=== PATIENT | female | born 1990 | race Hispanic/Latino ===

== ENCOUNTER 2018-05-13 13:23 | Emergency (ER) | payer SELFPAY ==
[2018-05-13 14:44] LABS: Bilirubin Negative (Negative); Blood, Urine Moderate (Negative); Clarity CLEAR (Clear); Glucose, Urine (Dipstick) Negative (Negative); Leukocyte Negative (Negative); Nitrite Negative (Negative); Protein, Urine (Dipstick) Negative (Neg-Trace); Specific Gravity, Urine 1.013 (1.002-1.036); Urobilinogen 0.2 mg/dL (0.2-1.0); pH, Urine 5.5 (5.0-9.0)
[2018-05-13 14:45] LABS: Bacteria/HPF None Seen HPF (None Seen); Hyaline Casts/LPF 0-3 HYALINE CAST LPF (0-3 Hyaline); Squamous Epithelial 0-3 HPF (0-3); WBC/HPF 0-3 HPF (0-3)
[2018-05-13 14:46] LABS: #Basophils 0.1 thou/uL (0.0-0.2); #Eosinphils 0.1 thou/uL (0.0-0.7); #Lymphocytes 2.4 thou/uL (1.20-3.40); #Monocytes 0.4 thou/uL (0.11-0.59); #Neutrophils 5.1 thou/uL (1.40-6.50); %Basophils 0.8 % (0.0-1.0); %Eosinophils 1.8 % (0.0-10.0); %Lymphocytes 29.4 % (21.0-51.0); %Monocytes 5.4 % (0.0-10.0); %Neutrophils 62.6 % (42.0-75.0); Hemoglobin 12.3 g/dL (12.0-16.0); Mean Corpuscular HGB CONC 33.4 g/dL (32.0-36.0); Mean Corpuscular Hemoglobin 28.8 pg (27.0-31.0); Mean Corpuscular Volume 86.2 fL (78.0-98.0); Mean Platelet Volume 7.5 fL (7.4-10.4); Platelet Count 377 thou/uL (130-400); RBC Distribution Width 11.8 % (11.5-14.5); Red Blood Cell (RBC) Count 4.27 mill/uL (4.20-5.40); White Blood Cell (WBC) Count 8.1 thou/uL (4.8-10.8)
[2018-05-13] MEDS ORDERED: Lidocaine Viscous Sol 2% 15 ml UD Cup ONE (14:48)
[2018-05-13] MEDS ORDERED: Mag-Al 1200 mg/1200 mg/30 ML UDCUP ONE (14:48)
[2018-05-13 14:49] LABS: Pregnancy Test - Urine (BHCG) Negative (Negative); Pregu Control Background? CLEAR/WHITE (CLR/WHITE); Pregu Control Bar Appear? YES (CONTROL BAR); Specific Gravity 1.013 (1.002-1.036)
[2018-05-13 14:50] LABS: Yeast-AUWi Flag 48.4 (0-25.0)
[2018-05-13 14:56] LABS: ALT (SGPT) 25 U/L (8-55); AST (SGOT) 19 U/L (5-34); Albumin 4.6 g/dL (3.5-5.0); Alkaline Phosphatase 84 U/L (40-150); Anion Gap 11 mmol/L (10-20); BUN (Urea Nitrogen) 13 mg/dL (7.0-18.7); Bilirubin, Total 0.3 mg/dL (0.2-1.2); Calc. Creatinine Clearance 0 mL/min (70-130); Calcium 9.6 mg/dL (7.8-10.44); Carbon Dioxide 26 mmol/L (22-29); Chloride 103 mmol/L (98-107); Estimated GFR-MDRD Greater than 90; Globulin 3.7 g/dL (2.4-3.5); Glucose 93 mg/dL (70-105); Lipase 17 U/L (8-78); Potassium 3.6 mmol/L (3.5-5.1); Protein, Total 8.3 g/dL (6.0-8.3); Sodium 136 mmol/L (136-145)
[2018-05-13 14:57] LABS: RBC/HPF 0-3 HPF (0-3)
--- NOTE | 2018-05-13 16:10 | ULT ---
RIGHT UPPER QUADRANT ULTRASOUND: Date: 05/13/18 HISTORY: Pain. COMPARISON: None. TECHNIQUE: Utilizing a multihertz transducer, sonographic imaging of the right upper quadrant is performed in th e longitudinal and transverse plane. FINDINGS: Suboptimal evaluation of the pancreas. Hepatic parenchyma has a normal echotexture. No hepatic masses or intrahepatic biliary dilatation. Co ntour of the hepatic margin maintained. Right hepatic lobe measures 16.2 cm. Main portal vein is patent. Appropriate direction of flow. Sonographic evidence of cholelithiasis. There is at least a 1.0 cm gallstone in the lumen of the gall bladder. Gallbladder wall is not thickened. No pericholecystic fluid. Negative Singh's sign. Common bile duct diameter is 0.3 cm. No hydronephrosis. Right kidney measures 6.0 x 12.8 x 5.7 cm. Nonshadowing hyperechoic focus in the r ight renal cortex is nonspecific. IMPRESSION: No sonographic evidence of cholecystitis. There is sonographic evidence of cholelithiasis. HIDA scan if clinically warranted. POS: IVONE
== END 2018-05-13 17:13 | disposition home or self-care (01) ==
LOC: ERS 13:23
DX: K80.20 Calculus of gallbladder without cholecystitis without obstruction (principal); E78.5 Hyperlipidemia, unspecified; D64.9 Anemia, unspecified
CPT/HCPCS: 76705; 80053; 81003; 81015; 81025; 83690; 85025

== ENCOUNTER 2018-06-09 09:17 | Outpatient (CLI) | payer MEDICAID ==
[2018-06-09 10:25] LABS: #Basophils 0.1 thou/uL (0.0-0.2); #Eosinphils 0.2 thou/uL (0.0-0.7); #Lymphocytes 2.3 thou/uL (1.20-3.40); #Monocytes 0.4 thou/uL (0.11-0.59); #Neutrophils 4.4 thou/uL (1.40-6.50); %Basophils 0.9 % (0.0-1.0); %Eosinophils 2.5 % (0.0-10.0); %Lymphocytes 32.1 % (21.0-51.0); %Monocytes 4.8 % (0.0-10.0); %Neutrophils 59.7 % (42.0-75.0); Mean Corpuscular HGB CONC 33.8 g/dL (32.0-36.0); Mean Corpuscular Hemoglobin 28.9 pg (27.0-31.0); Mean Corpuscular Volume 85.4 fL (78.0-98.0); Mean Platelet Volume 7.8 fL (7.4-10.4); Platelet Count 326 thou/uL (130-400); RBC Distribution Width 11.6 % (11.5-14.5); Red Blood Cell (RBC) Count 4.15 mill/uL (4.20-5.40); White Blood Cell (WBC) Count 7.3 thou/uL (4.8-10.8)
[2018-06-09 10:33] LABS: BHCG - Serum Negative (NEGATIVE); Pregs Control Background? CLEAR/WHITE (CLR/WHITE); Pregs Control Bar Appear? YES (CONTROL BAR)
[2018-06-09 10:50] LABS: ALT (SGPT) 24 U/L (8-55); AST (SGOT) 17 U/L (5-34); Albumin 4.4 g/dL (3.5-5.0); Alkaline Phosphatase 96 U/L (40-150); Anion Gap 12 mmol/L (10-20); BUN (Urea Nitrogen) 12 mg/dL (7.0-18.7); Bilirubin, Direct 0.1 mg/dL (0.1-0.3); Bilirubin, Total 0.3 mg/dL (0.2-1.2); Calc. Creatinine Clearance 0 mL/min (70-130); Calcium 9.1 mg/dL (7.8-10.44); Carbon Dioxide 24 mmol/L (22-29); Chloride 105 mmol/L (98-107); Estimated GFR-MDRD Greater than 90; Globulin 3.1 g/dL (2.4-3.5); Glucose 97 mg/dL (70-105); Protein, Total 7.5 g/dL (6.0-8.3); Sodium 137 mmol/L (136-145)
== END 2018-06-09 09:18 | disposition home or self-care (01) ==
LOC: LABBT 09:17
PROVIDERS: ATTEND Surgery
DX: Z01.812 Encounter for preprocedural laboratory examination (principal); K80.20 Calculus of gallbladder without cholecystitis without obstruction
CPT/HCPCS: 80053; 80076; 84703; 85025

== ENCOUNTER 2018-06-10 06:07 | Day surgery (SDC) | payer MEDICAID, OTHER ==
[2018-06-09 09:36] VITALS: BMI 29.2
[2018-06-10] MEDS ORDERED: Bupivacaine/Epinephrine 0.25% 30 ML VIAL ONE (06:26)
[2018-06-10] MEDS ORDERED: Fentanyl 100 MCG/2 ML VIAL ONE ×3 (06:44→09:12)
[2018-06-10] MEDS ORDERED: Midazolam HCl 2 mg/2 ml Vial ONE (06:44)
[2018-06-10] MEDS ORDERED: cefOXitin Sodium/Dextrose,Iso 2 GM in Premix Bag 1 BAG IVPB SCH (07:15)
[2018-06-10] MEDS ORDERED: cefOXitin Sodium 1 GM in Sodium Chloride 0.9% 100 ML IVPB SCH (07:15)
[2018-06-10] MEDS ORDERED: HYDROcodone/Acetaminophen 5/325 mg Tablet ONE ×2 (10:15→11:27)
--- NOTE | 2018-06-10 10:49 | OP ---
DATE OF PROCEDURE: 06/10/2018 PREOPERATIVE DIAGNOSIS: Symptomatic cholelithiasis. PROCEDURE PERFORMED: Laparoscopic cholecystectomy. INDICATIONS: A 28-year-old female, who has been having episodic right upper quadrant pain, radiating to the back, associated with nausea. Ultrasound showed cholelithiasis. FINDINGS: Very small cystic duct, some adhesions to the gallbladder. DESCRIPTION OF PROCEDURE: After informed consent was obtained, the patient was taken to the operating room, given general endotracheal anesthesia, placed in supine position. Abdomen was prepped and draped in usual fashion. Local anesthesia infiltrated subcutaneously and deep. A subumbilical incision was performed with subcu device sharply. The fascia was grasped. Two stay sutures of 0 Vicryl were placed each side of midline. Midline was incised. Digital palpation revealed no local adhesions. A blunt 10/12 mm trocar inserted. Pneumoperitoneum was created to a pressure of 15 mmHg. A 0-degree laparoscope was inserted under direct vision. Three 5-mm ports were placed subcostally. The gallbladder was grasped and advanced superiorly. Peritoneum was lysed distally, revealed small cystic duct and artery as well as the critical view. The artery and duct were triply ligated and divided. The gallbladder removed from its fossa utilizing electrocautery and removed from the abdomen through the umbilical port. Hemostasis was assured. Trocars and retractors were removed. The fascia was closed with interrupted 0 Vicryl suture and the skin closed with interrupted 4-0 Rapide. Dermabond was applied. The patient tolerated the procedure well, transferred to Recovery in good condition. Sponge and needle count verified to be correct x2. Job ID: [id number]
[2018-06-10] MEDS ORDERED: Ondansetron PF 4 MG/2 ML Vial ONE (21:29)
[2018-06-10] MEDS ORDERED: PROPOFOL 200 MG/20 ML VIAL ONE (21:29)
[2018-06-10] MEDS ORDERED: Esmolol 100 MG/10 ML VIAL ONE (21:29)
[2018-06-10] MEDS ORDERED: Ketorolac Tromethamine 30 MG/ML VIAL ONE (21:29)
[2018-06-10] MEDS ORDERED: Glycopyrrolate 0.2 MG/ML 5 ML SYRINGE ONE (21:29)
[2018-06-10] MEDS ORDERED: Dexamethasone 20 MG/5 ML VIAL ONE (21:29)
== END 2018-06-10 11:35 | disposition home or self-care (01) ==
LOC: SDC 06:07
PROVIDERS: ATTEND Surgery
PROC: 0FT44ZZ Resection of Gallbladder, Percutaneous Endoscopic Approach (ICD-10-PCS; principal; 2018-06-10)
DX: K80.10 Calculus of gallbladder with chronic cholecystitis without obstruction (principal); Z79.891 Long term (current) use of opiate analgesic
CPT/HCPCS: 88304; 96374; J0694; J1100; J1885; J2250; J2405; J2704; J3010; J7050

== ENCOUNTER 2018-07-10 14:07 | Emergency (ER) | payer MEDICAID, OTHER ==
[2018-07-10] MEDS ORDERED: Ibuprofen 800 MG TAB ONE (14:55)
[2018-07-10 16:01] LABS: Bilirubin Negative (Negative); Blood, Urine Large (Negative); Clarity CLOUDY (Clear); Glucose, Urine (Dipstick) Negative (Negative); Leukocyte Small (Negative); Nitrite Negative (Negative); Protein, Urine (Dipstick) Trace mg/dL (Neg-Trace); Specific Gravity, Urine 1.019 (1.002-1.036)
[2018-07-10 16:04] LABS: Bacteria/HPF None Seen HPF (None Seen); Hyaline Casts/LPF 0-3 HYALINE CAST LPF (0-3 Hyaline); Pathc Cast-AUWi Flag 0.43 (0-2.49); RBC/HPF GREATER THAN 50-TNTC HPF (0-3); Squamous Epithelial 0-3 HPF (0-3)
[2018-07-10 16:07] LABS: Pregnancy Test - Urine (BHCG) Negative (Negative); Pregu Control Background? CLEAR/WHITE (CLR/WHITE); Pregu Control Bar Appear? YES (CONTROL BAR); Specific Gravity 1.019 (1.002-1.036)
[2018-07-10 16:57] LABS: #Lymphocytes 0.9 thou/uL (1.20-3.40); #Monocytes 0.3 thou/uL (0.11-0.59); #Neutrophils 3.4 thou/uL (1.40-6.50); %Basophils 0.1 % (0.0-1.0); %Eosinophils 1.1 % (0.0-10.0); %Lymphocytes 18.9 % (21.0-51.0); Hemoglobin 11.5 g/dL (12.0-16.0); Mean Corpuscular HGB CONC 33.8 g/dL (32.0-36.0); Mean Corpuscular Hemoglobin 28.7 pg (27.0-31.0); Mean Corpuscular Volume 84.9 fL (78.0-98.0); Mean Platelet Volume 7.6 fL (7.4-10.4); Platelet Count 236 thou/uL (130-400); RBC Distribution Width 11.6 % (11.5-14.5); White Blood Cell (WBC) Count 4.6 thou/uL (4.8-10.8)
[2018-07-10 17:20] LABS: ALT (SGPT) 47 U/L (8-55); AST (SGOT) 32 U/L (5-34); Albumin 4.1 g/dL (3.5-5.0); Alkaline Phosphatase 134 U/L (40-150); Anion Gap 12 mmol/L (10-20); BUN (Urea Nitrogen) 9 mg/dL (7.0-18.7); Bilirubin, Total 0.4 mg/dL (0.2-1.2); Calc. Creatinine Clearance 0 mL/min (70-130); Carbon Dioxide 23 mmol/L (22-29); Chloride 104 mmol/L (98-107); Estimated GFR-MDRD Greater than 90; Globulin 3.3 g/dL (2.4-3.5); Glucose 93 mg/dL (70-105); Potassium 3.3 mmol/L (3.5-5.1); Protein, Total 7.4 g/dL (6.0-8.3); Sodium 136 mmol/L (136-145)
== END 2018-07-10 17:16 | disposition home or self-care (01) ==
LOC: ERS 14:07
DX: N39.0 Urinary tract infection, site not specified (principal); E78.5 Hyperlipidemia, unspecified; D64.9 Anemia, unspecified
CPT/HCPCS: 36415; 80053; 81003; 81015; 81025; 85025; 87086; 87804; 99283

== ENCOUNTER 2019-05-25 21:12 | Emergency (ER) | payer OTHER, SELFPAY ==
[2019-05-25] MEDS ORDERED: Acetaminophen 325 MG TAB ONE (22:53)
--- NOTE | 2019-05-25 23:02 | RAD ---
RADIOGRAPH LEFT GREAT TOE 3VIEWS: DATE: 05/25/2019 HISTORY: 29-year-old female status post blunt trauma to first toe. FINDINGS: There is no dislocation. No fracture is identified. IMPRESSION: No fracture.
== END 2019-05-25 23:27 | disposition home or self-care (01) ==
LOC: ERS 21:12
DX: S90.112A Contusion of left great toe without damage to nail, initial encounter (principal); D64.9 Anemia, unspecified; E78.5 Hyperlipidemia, unspecified; E78.00 Pure hypercholesterolemia, unspecified; W22.03XA Walked into furniture, initial encounter

== ENCOUNTER 2019-06-14 12:09 | Emergency (ER) | payer SELFPAY ==
[2019-06-14 13:01] LABS: Pregnancy Test - Urine (BHCG) Negative (Negative); Pregu Control Background? CLEAR/WHITE (CLR/WHITE); Pregu Control Bar Appear? YES (CONTROL BAR); Specific Gravity 1.017 (1.002-1.036)
[2019-06-14 13:08] LABS: Bacteria/HPF None Seen HPF (None Seen); Bilirubin Negative (Negative); Blood, Urine 2+ (Negative); Clarity Clear (Clear); Glucose, Urine (Dipstick) Normal (Negative); Leukocyte Negative Leu/uL (Negative); Mucous/LPF Rare LPF (<2+); Nitrite Negative (Negative); Protein, Urine (Dipstick) Negative (Neg-Trace); Squamous Epithelial 0-3 HPF (0-3); Urobilinogen Normal mg/dL (Less than 2); WBC/HPF 0-3 HPF (0-3)
[2019-06-14] MEDS ORDERED: Ketorolac Tromethamine 30 MG/ML VIAL ONE (14:11)
--- NOTE | 2019-06-14 14:43 | CT ---
CT ABDOMEN AND PELVIS PERFORMED WITHOUT CONTRAST ENHANCEMENT: Date: 06/14/19 HISTORY: Dysuria and pain radiating to the back. FINDINGS: Lung bases are clear. The liver, spleen, and pancreas regions appear unremarkable given the limitations of a noncontrast st udy. The gallbladder has been removed. Right and left adrenal glands, and right and left kidneys are normal in appearance. No renal calculi are demonstrated. No ureteral calculus. No obstruction. No significant periaortic or mesenteric adeno mila. CT of pelvis was performed without contrast enhancement. Appendix region appears unremarkable. I see what I believe to be possibly the appendix. There is certainly no periappendiceal inflammatory change noted. There appear to be follicles involving both adnexa and what appears to be free fluid in the r ight side of the cul-de-sac. IMPRESSION: Findings that would suggest the possibility of a ruptured right ovarian follicle. POS: IVONE
== END 2019-06-14 15:07 | disposition home or self-care (01) ==
LOC: ERS 12:09
DX: N76.0 Acute vaginitis (principal); N39.0 Urinary tract infection, site not specified; E78.5 Hyperlipidemia, unspecified; E78.00 Pure hypercholesterolemia, unspecified
CPT/HCPCS: 74176; 81003; 81015; 81025; 87086; 96372; J1885

== ENCOUNTER 2019-08-15 08:00 | Emergency (ER) | payer SELFPAY ==
[2019-08-15 08:30] LABS: #Basophils 0.1 thou/uL (0.0-0.2); #Eosinphils 0.1 thou/uL (0.0-0.7); #Lymphocytes 1.7 thou/uL (1.20-3.40); #Monocytes 0.3 thou/uL (0.11-0.59); %Basophils 0.6 % (0.0-1.0); %Eosinophils 1.2 % (0.0-10.0); %Lymphocytes 20.6 % (21.0-51.0); %Monocytes 3.7 % (0.0-10.0); %Neutrophils 73.9 % (42.0-75.0); Hemoglobin 12.2 g/dL (12.0-16.0); Mean Corpuscular HGB CONC 33.5 g/dL (32.0-36.0); Mean Corpuscular Hemoglobin 27.5 pg (27.0-31.0); Mean Corpuscular Volume 82.1 fL (78.0-98.0); Platelet Count 323 thou/uL (130-400); RBC Distribution Width 13.6 % (11.5-14.5); Red Blood Cell (RBC) Count 4.43 mill/uL (4.20-5.40); White Blood Cell (WBC) Count 8.1 thou/uL (4.8-10.8)
[2019-08-15 08:39] LABS: Bacteria/HPF None Seen HPF (None Seen); Bilirubin Negative (Negative); Blood, Urine 2+ (Negative); Clarity Clear (Clear); Glucose, Urine (Dipstick) Normal (Negative); Leukocyte 25 Leu/uL (Negative); Nitrite Negative (Negative); Protein, Urine (Dipstick) Negative (Neg-Trace); Squamous Epithelial 0-3 HPF (0-3); Urobilinogen Normal mg/dL (Less than 2); WBC/HPF 0-3 HPF (0-3)
[2019-08-15 08:45] LABS: ALT (SGPT) 46 U/L (8-55); AST (SGOT) 21 U/L (5-34); Albumin 4.7 g/dL (3.5-5.0); Alkaline Phosphatase 113 U/L (40-110); Anion Gap 14 mmol/L (10-20); BUN (Urea Nitrogen) 9 mg/dL (7.0-18.7); Bilirubin, Total 0.3 mg/dL (0.2-1.2); Calc. Creatinine Clearance 0 mL/min (70-130); Calcium 10.4 mg/dL (7.8-10.44); Carbon Dioxide 21 mmol/L (22-29); Chloride 106 mmol/L (98-107); Estimated GFR-MDRD Greater than 90; Globulin 3.9 g/dL (2.4-3.5); Glucose 111 mg/dL (70-105); Potassium 3.6 mmol/L (3.5-5.1); Protein, Total 8.6 g/dL (6.0-8.3); Sodium 137 mmol/L (136-145)
--- NOTE | 2019-08-15 10:25 | ULT ---
Pelvic sonogram transabdominal and transvaginal imaging with duplex evaluation HISTORY: Early . Pelvic pain. FINDINGS: Urinary bladder is unremarkable. Uterus is retroverted and is 7.5 cm. Gestational sac conta ins a yolk sac and tiny pole. Measurements correlate with 5 weeks 5 days gestational age giving an estimated date of delivery of 04/11/2020. Small size of pole precludes documentation of heart motion. No free fluid in the pelvis. Each ovary has a normal appearance with small follicles and good color flow. IMPRESSION: Single early intrauterine gestation. Estimated gestational age 5 weeks 5 days. No evidenc e of complication. Retroverted uterus.
== END 2019-08-15 10:50 | disposition home or self-care (01) ==
LOC: ERS 08:00
DX: O99.89 Other specified diseases and conditions complicating pregnancy, childbirth and the puerperium (principal); M54.5 Low back pain; R10.817 Generalized abdominal tenderness; O99.281 Endocrine, nutritional and metabolic diseases complicating pregnancy, first trimester; E78.5 Hyperlipidemia, unspecified; E78.00 Pure hypercholesterolemia, unspecified; O99.011 Anemia complicating pregnancy, first trimester; Z3A.01 Less than 8 weeks gestation of pregnancy
CPT/HCPCS: 36415; 76856; 80053; 81003; 81015; 84702; 85025; 86900; 86901

== ENCOUNTER 2020-03-28 05:07 | Inpatient (IN) | payer OTHER ==
[2020-03-28] MEDS ORDERED: Methylergonovine 0.2 MG/ML VIAL IM PRN (05:34)
[2020-03-28] MEDS ORDERED: NS / Oxytocin 40 units/1000ml 1,000 ML IV PRN (05:34)
[2020-03-28] MEDS ORDERED: Misoprostol 200 MCG TAB PR PRN (05:34)
[2020-03-28] MEDS ORDERED: Promethazine HCl 25 MG/ML VIAL IM PRN (05:34)
[2020-03-28] MEDS ORDERED: HYDROcodone/Acetaminophen 5/325 mg Tablet PO PRN ×3 (05:34→13:14)
[2020-03-28] MEDS ORDERED: Lidocaine 1% (PF) 30 ML VIAL SC PRN (05:34)
[2020-03-28] MEDS ORDERED: Acetaminophen 500 MG TAB PO PRN (05:34)
[2020-03-28] MEDS ORDERED: Carboprost 250 MCG/ML AMP IM PRN (05:34)
[2020-03-28] MEDS ORDERED: Ibuprofen 800 MG TAB PO PRN (05:34)
[2020-03-28] MEDS ORDERED: Butorphanol Tartrate 1 MG/ML VIAL SLOW IVP PRN (05:34)
[2020-03-28] MEDS ORDERED: Ondansetron PF 4 MG/2 ML Vial IVP PRN ×2 (05:34→13:14)
[2020-03-28] MEDS ORDERED: Diphenoxylate HCl/Atropine Tablet PO PRN ×2 (05:34)
[2020-03-28] MEDS ORDERED: hydrALAZINE 20 MG/ML VIAL SLOW IVP PRN ×2 (05:34→13:14)
[2020-03-28] MEDS ORDERED: Lactated Ringer's 1,000 ML IV SCH (05:45)
[2020-03-28 05:48] VITALS: BMI 26.7
[2020-03-28 05:48] LABS: Amnisure Test RUPTURE DETECTED (No Rupture)
[2020-03-28 05:50] LABS: Amnisure Internal Control QC ACCEPTABLE (ACCEPTABLE)
[2020-03-28 06:12] LABS: Hemoglobin 9.8 g/dL (12.0-16.0); Mean Corpuscular HGB CONC 33.7 g/dL (32.0-36.0); Mean Corpuscular Hemoglobin 27.1 pg (27.0-31.0); Mean Corpuscular Volume 80.4 fL (78.0-98.0); Mean Platelet Volume 10.4 fL (7.4-10.4); Platelet Count 279 thou/uL (130-400); RBC Distribution Width 12.9 % (11.5-14.5); Red Blood Cell (RBC) Count 3.62 mill/uL (4.20-5.40)
[2020-03-28 06:52] LABS: HBSAg Index 0.19 S/CO (0-0.99); Hep B Surf Ag Non-Reactive S/CO (NonReactive); Syphilis Antibody Nonreactive (Nonreactive); Syphilis Antibody Index 0.02 S/CO (<1.00 Non-Reactive)
[2020-03-28] MEDS ORDERED: Tranexamic Acid 1,000 MG/10 ML VIAL ONE (07:41)
[2020-03-28] MEDS ORDERED: Fentanyl 4 mcg/Bup 0.1% Cadd 100 ML ONE (07:59)
[2020-03-28] MEDS ORDERED: Bupivacaine 0.25% HCL 30 ML VIAL ONE (08:45)
[2020-03-28] MEDS ORDERED: Lidocaine 2% MPF 10 ML AMP (For Epidural Use) ONE (08:45)
[2020-03-28] MEDS ORDERED: Milk Of Magnesia 30 ML UDCUP PO PRN (13:14)
[2020-03-28] MEDS ORDERED: Adacel (T-DAP) 0.5 ML SYRINGE IM ONE (13:14)
[2020-03-28] MEDS ORDERED: diphenhydrAMINE 25 MG CAP PO PRN (13:14)
[2020-03-28] MEDS ORDERED: Lanolin Ointment 7 GM TUBE TOP PRN (13:14)
[2020-03-28] MEDS ORDERED: Bisacodyl 10 MG SUPP PR PRN (13:14)
[2020-03-28] MEDS ORDERED: NS / Oxytocin 40 units/1000ml 1,000 ML IV SCH (13:14)
[2020-03-28] MEDS: HYDROcodone/Acetaminophen 5/325 mg Tablet PO PRN ×2 (14:36→19:40)
[2020-03-28] MEDS: Ibuprofen 800 MG TAB PO SCH ×2 (14:39→21:41)
[2020-03-28 17:55] LABS: SARS-CoV-2 MS2 Positive; SARS-CoV-2 N Gene Negative; SARS-CoV-2 S Gene Negative; SARS-CoV-2 by NAA Not Detected (NotDetected); SARS-CoV-2 orf1ab Negative
[2020-03-28] MEDS: Ferrous Sulfate 325 MG TAB PO SCH (17:55)
[2020-03-28] MEDS: Docusate Calcium (SURFAK) 240 MG CAP PO SCH (19:41)
[2020-03-28] MEDS ORDERED: FLU VACC QS2020-21(6MOS UP)/PF 60 MCG/0.5 ML SYRINGE IM ONE (21:00)
[2020-03-29] MEDS: HYDROcodone/Acetaminophen 5/325 mg Tablet PO PRN ×2 (00:03→08:50)
[2020-03-29] MEDS: Ibuprofen 800 MG TAB PO SCH ×2 (05:45→14:22)
[2020-03-29 07:56] VITALS: BP 120/75; TEMP 98.3
[2020-03-29] MEDS: Docusate Calcium (SURFAK) 240 MG CAP PO SCH (08:50)
[2020-03-29] MEDS: Ferrous Sulfate 325 MG TAB PO SCH ×2 (08:50→16:21)
[2020-03-29] MEDS ORDERED: Prenatal Vitamin 1 TAB PO SCH (09:00)
== END 2020-03-29 17:09 | disposition home or self-care (01) | DRG 807 ==
LOC: L&D/OP 05:07 → L&D 06:13 → 3SW 14:22
PROVIDERS: ADMIT Family Medicine; ATTEND Family Medicine
PROC: 10E0XZZ Delivery of Products of Conception, External Approach (ICD-10-PCS; principal; 2020-03-28)
PROC: 10907ZC Drainage of Amniotic Fluid, Therapeutic from Products of Conception, Via Natural or Artificial Opening (ICD-10-PCS; 2020-03-28)
DX: O77.0 Labor and delivery complicated by meconium in amniotic fluid (principal); Z37.0 Single live birth; Z20.828 Contact with and (suspected) exposure to other viral communicable diseases; Z3A.38 38 weeks gestation of pregnancy; O69.81X0 Labor and delivery complicated by cord around neck, without compression, not applicable or unspecified
CPT/HCPCS: 36415; 51702; 84112; 85027; 86780; 86850; 86900; 86901; 87340; 87635; 99285; J2001; S0020; U0003

== ENCOUNTER 2021-03-29 14:18 | Inpatient (IN) | payer OTHER ==
[2021-03-29 14:59] LABS: #Eosinphils 0.1 thou/uL (0.0-0.7); #Lymphocytes 2.1 thou/uL (1.20-3.40); #Monocytes 0.5 thou/uL (0.11-0.59); %Basophils 0.3 % (0.0-1.0); %Eosinophils 1.1 % (0.0-10.0); %Lymphocytes 24.2 % (21.0-51.0); %Monocytes 6.1 % (0.0-10.0); %Neutrophils 68.3 % (42.0-75.0); Hemoglobin 11.7 g/dL (12.0-16.0); Mean Corpuscular HGB CONC 33.9 g/dL (32.0-36.0); Mean Corpuscular Hemoglobin 27.8 pg (27.0-31.0); Mean Corpuscular Volume 82.1 fL (78.0-98.0); Mean Platelet Volume 7.5 fL (7.4-10.4); Platelet Count 402 thou/uL (130-400); RBC Distribution Width 13.4 % (11.5-14.5); Red Blood Cell (RBC) Count 4.22 mill/uL (4.20-5.40); White Blood Cell (WBC) Count 8.7 thou/uL (4.8-10.8)
[2021-03-29 15:01] LABS: BHCG - Serum Negative (NEGATIVE); Pregs Control Background? CLEAR/WHITE (CLR/WHITE); Pregs Control Bar Appear? YES (CONTROL BAR)
[2021-03-29 15:16] LABS: ALT (SGPT) 68 U/L (8-55); AST (SGOT) 36 U/L (5-34); Albumin 4.1 g/dL (3.5-5.0); Alkaline Phosphatase 229 U/L (40-110); Anion Gap 13 mmol/L (10-20); BUN (Urea Nitrogen) 9 mg/dL (7.0-18.7); Bilirubin, Total 0.3 mg/dL (0.2-1.2); Calc. Creatinine Clearance 0 mL/min (70-130); Calcium 9.1 mg/dL (7.8-10.44); Carbon Dioxide 23 mmol/L (22-29); Chloride 103 mmol/L (98-107); Globulin 3.3 g/dL (2.4-3.5); Glucose 118 mg/dL (70-105); Potassium 3.5 mmol/L (3.5-5.1); Protein, Total 7.4 g/dL (6.0-8.3); Sodium 135 mmol/L (136-145)
[2021-03-29 17:53] LABS: Troponin I Less than 0.010 ng/mL (< 0.028)
[2021-03-29] MEDS ORDERED: Boostrix 0.5 ML (Tdap) VIAL ONE (17:57)
[2021-03-29] MEDS ORDERED: Acetaminophen 500 MG TAB ONE (17:57)
[2021-03-29] MEDS ORDERED: Lactated Ringer's 1,000 ML IV SCH (18:30)
[2021-03-29] MEDS ORDERED: Lorazepam 2 MG/ML VIAL SLOW IVP PRN (19:19)
[2021-03-29 21:05] LABS: Iron 62 ug/dL (50-170); Iron Binding Capacity, Total 371 mcg/dL (265-497)
[2021-03-29 21:10] LABS: Troponin I Less than 0.010 ng/mL (< 0.028)
[2021-03-29 21:22] LABS: Syphilis Antibody Nonreactive (Nonreactive); Syphilis Antibody Index 0.03 S/CO (<1.00 Non-Reactive)
[2021-03-29 21:24] LABS: Ferritin 9.68 ng/mL (10-291)
[2021-03-29 23:01] VITALS: BMI 29.9
[2021-03-29 23:47] LABS: HBCM Index 0.06 S/CO (0-0.79); HBSAg Index 0.22 S/CO (0-0.99); HIV (1/2) Antibody/Antigen Non-Reactive (NonReactive); HIV 1/2 INDEX 0.07 S/CO (<1.00); Hep A IgM AB Non-Reactive (NonReactive); Hep A IgM S/CO 0.13 S/CO (0-0.79); Hep B Surf Ag Non-Reactive S/CO (NonReactive); Hepatitis B Core IgM Abs Non-Reactive (NonReactive)
[2021-03-29 23:50] LABS: Hep C IgG Ab Reflex HepC Qnt (NonReactive); Hep C Index 3.09 S/CO (0-0.79)
[2021-03-30 04:35] LABS: #Lymphocytes 2.5 thou/uL (1.20-3.40); #Monocytes 0.6 thou/uL (0.11-0.59); #Neutrophils 3.7 thou/uL (1.40-6.50); %Basophils 0.6 % (0.0-1.0); %Eosinophils 0.7 % (0.0-10.0); %Lymphocytes 36.4 % (21.0-51.0); %Monocytes 8.1 % (0.0-10.0); %Neutrophils 54.2 % (42.0-75.0); Hemoglobin 10.3 g/dL (12.0-16.0); Mean Corpuscular HGB CONC 34.8 g/dL (32.0-36.0); Mean Corpuscular Hemoglobin 28.8 pg (27.0-31.0); Mean Corpuscular Volume 82.6 fL (78.0-98.0); Mean Platelet Volume 7.3 fL (7.4-10.4); Platelet Count 366 thou/uL (130-400); RBC Distribution Width 13.4 % (11.5-14.5); White Blood Cell (WBC) Count 6.9 thou/uL (4.8-10.8)
[2021-03-30 04:55] LABS: ALT (SGPT) 56 U/L (8-55); AST (SGOT) 33 U/L (5-34); Albumin 3.3 g/dL (3.5-5.0); Alkaline Phosphatase 196 U/L (40-110); Anion Gap 10 mmol/L (10-20); BUN (Urea Nitrogen) 5 mg/dL (7.0-18.7); Bilirubin, Total 0.4 mg/dL (0.2-1.2); Calc. Creatinine Clearance 140 mL/min (70-130); Calcium 8.4 mg/dL (7.8-10.44); Carbon Dioxide 24 mmol/L (22-29); Chloride 108 mmol/L (98-107); Globulin 2.8 g/dL (2.4-3.5); Glucose 91 mg/dL (70-105); Magnesium 1.7 mg/dL (1.6-2.6); Potassium 3.6 mmol/L (3.5-5.1); Protein, Total 6.1 g/dL (6.0-8.3); Sodium 138 mmol/L (136-145)
[2021-03-30 06:18] LABS: Amphetamine Not Detected (NotDetected); Barbiturates Screen Not Detected (NotDetected); Benzodiazepine Screen Not Detected (NotDetected); Cocaine Metabolite Screen Not Detected (NotDetected); Methadone Not Detected (NotDetected); Methamphetamine Not Detected (NotDetected); Opiate Screen Not Detected (NotDetected); Oxycodone Screen Not Detected (NotDetected); Phencyclidine (PCP) Not Detected (NotDetected); THC/Cannabinoid Screen Not Detected (NotDetected); Tricyclic Screen Not Detected (NotDetected)
[2021-03-30] MEDS: Ibuprofen 200 MG TAB PO PRN ×2 (08:32→18:06)
[2021-03-30] MEDS ORDERED: FLU VACC QS2021-22(6MOS UP)/PF 60 MCG/0.5 ML SYRINGE IM ONE (09:00)
[2021-03-30] MEDS ORDERED: Magnevist 469MG/ML 20 ML VIAL ONE (09:01)
[2021-03-30] MEDS ORDERED: Lorazepam 1 MG TAB PO SCH (09:11)
[2021-03-30] MEDS ORDERED: Magnesium Oxide 250 MG TAB PO SCH (09:45)
[2021-03-30 17:21] LABS: SARS-CoV-2 PCR by NAA Not Detected (NotDetected)
[2021-03-31] MEDS: Ibuprofen 200 MG TAB PO PRN ×2 (00:01→06:23)
[2021-03-31 05:05] LABS: #Eosinphils 0.1 thou/uL (0.0-0.7); #Lymphocytes 2.3 thou/uL (1.20-3.40); #Monocytes 0.7 thou/uL (0.11-0.59); #Neutrophils 5.4 thou/uL (1.40-6.50); %Basophils 0.3 % (0.0-1.0); %Eosinophils 0.9 % (0.0-10.0); %Lymphocytes 27.3 % (21.0-51.0); %Monocytes 8.4 % (0.0-10.0); %Neutrophils 63.1 % (42.0-75.0); Hemoglobin 11.4 g/dL (12.0-16.0); Mean Corpuscular HGB CONC 34.4 g/dL (32.0-36.0); Mean Corpuscular Hemoglobin 28.3 pg (27.0-31.0); Mean Corpuscular Volume 82.2 fL (78.0-98.0); Platelet Count 378 thou/uL (130-400); RBC Distribution Width 13.6 % (11.5-14.5); Red Blood Cell (RBC) Count 4.04 mill/uL (4.20-5.40); White Blood Cell (WBC) Count 8.6 thou/uL (4.8-10.8)
[2021-03-31 05:28] LABS: ALT (SGPT) 50 U/L (8-55); AST (SGOT) 18 U/L (5-34); Albumin 3.8 g/dL (3.5-5.0); Alkaline Phosphatase 193 U/L (40-110); Anion Gap 14 mmol/L (10-20); BUN (Urea Nitrogen) 9 mg/dL (7.0-18.7); Bilirubin, Total Less than 0.2 mg/dL (0.2-1.2); Calc. Creatinine Clearance 140 mL/min (70-130); Calcium 9.1 mg/dL (7.8-10.44); Carbon Dioxide 23 mmol/L (22-29); Chloride 109 mmol/L (98-107); Globulin 3.1 g/dL (2.4-3.5); Glucose 115 mg/dL (70-105); Potassium 3.6 mmol/L (3.5-5.1); Protein, Total 6.9 g/dL (6.0-8.3); Sodium 142 mmol/L (136-145)
[2021-03-31] MEDS ORDERED: Magnesium Oxide 250 MG TAB PO SCH (09:00)
[2021-03-31 16:46] VITALS: BP 138/73; TEMP 97.8
[2021-04-01 10:39] LABS: Hep C PCR-Quant HCV Not Detected IU/mL (.)
== END 2021-03-31 18:20 | disposition home or self-care (01) | DRG 101 ==
LOC: ERS 14:18 → OBSVTOIN 17:04 → 2NO 17:04
PROVIDERS: ADMIT Family Medicine; ATTEND Family Medicine
DX: G40.409 Other generalized epilepsy and epileptic syndromes, not intractable, without status epilepticus (principal); S06.9X9A Unspecified intracranial injury with loss of consciousness of unspecified duration, initial encounter; Z20.822 Contact with and (suspected) exposure to COVID-19; E78.5 Hyperlipidemia, unspecified; E78.00 Pure hypercholesterolemia, unspecified; D64.9 Anemia, unspecified; D69.6 Thrombocytopenia, unspecified; E03.8 Other specified hypothyroidism; M25.512 Pain in left shoulder; W19.XXXA Unspecified fall, initial encounter; R07.89 Other chest pain; D75.839 Thrombocytosis, unspecified; Z90.49 Acquired absence of other specified parts of digestive tract
CPT/HCPCS: 36415; 70450; 70553; 71045; 72125; 80053; 80074; 80306; 82607; 82728; 82746; 83540; 83550; 83735; 84146; 84439; 84443; 84484; 84703; 85025; 86780; 87389; 87522; 90471; 90715; 93005; 93306; 95816; 95819; A9579; J7120; U0003; U0005